=== PATIENT | female | born 1960 | race African-American/Black ===

== ENCOUNTER 2023-02-28 20:19 | Emergency (ER) | payer SELFPAY | END 2023-02-28 20:36 | disposition home or self-care (01) | LOC: BURERS 20:19 | DX: S81.801D Unspecified open wound, right lower leg, subsequent encounter (principal); I10 Essential (primary) hypertension; F17.200 Nicotine dependence, unspecified, uncomplicated; W54.0XXD Bitten by dog, subsequent encounter ==

== ENCOUNTER 2023-04-20 10:24 | Emergency (ER) | payer SELFPAY | END 2023-04-20 11:00 | disposition home or self-care (01) | LOC: BURERS 10:24 | DX: M54.9 Dorsalgia, unspecified (principal); G89.29 Other chronic pain; I10 Essential (primary) hypertension | CPT/HCPCS: 99283 ==